=== PATIENT | female | born 1950 | race Caucasian/White ===

== ENCOUNTER 2018-03-20 13:36 | Emergency (ER) | payer SELFPAY ==
--- NOTE | 2018-03-20 15:09 | ED PDOC ---
Arrival/HPI - General Chief Complaint: High Blood Pressure Time Seen by Provider: 03/20/18 15:02 Historian: Patient - History of Present Illness Narrative History of Present Illness (Text): 03/20/18 15:06 67 year old female, with no significant past medical history, who presents to the Emergency department complaining of hypertension and a headache today. Patient states she is still experiencing the headache but it is better now. Patient denies any fevers, chills, shortness of breath, abdominal pain, nausea, vomiting, diarrhea, back pain, neck pain, dizziness, or any other complaint. Time/Duration: Prior to Arrival Symptom Onset: Gradual Symptom Course: Unchanged Activities at Onset: Light Context: Home Past Medical History - Provider Review Nursing Documentation Reviewed: Yes - Infectious Disease Hx of Infectious Diseases: None - Reproductive Menopause: Yes - Cardiac Hx Hypertension: Yes - Pulmonary Hx Respiratory Disorders: No - Neurological Hx Neurological Disorder: No - Hematological/Oncological Hx Hepatitis C: Yes - Psychiatric Hx Substance Use: No - Anesthesia Hx Anesthesia: No Family/Social History - Physician Review Nursing Documentation Reviewed: Yes Family/Social History: Unknown Family HX Smoking Status: Smoker Currrent Status Unknown Hx Alcohol Use: No Hx Substance Use: No Allergies/Home Meds Allergies/Adverse Reactions: Allergies No Known Allergies Allergy (Verified 03/20/18 14:25) Home Medications: Home Meds Medication Instructions Recorded Confirmed Captopril 50 mg PO DAILY 03/20/18 03/20/18 Review of Systems - Physician Review All systems were reviewed & negative as marked: Yes - Review of Systems Constitutional: Normal Eyes: Normal ENT: Normal Respiratory: Normal. absent: SOB, Cough Cardiovascular: Normal. absent: Chest Pain Gastrointestinal: Normal. absent: Abdominal Pain Genitourinary Female: Normal. absent: Dysuria, Frequency Musculoskeletal: Normal. absent: Back Pain, Neck Pain Skin: Normal. absent: Rash Neurological: Headache Endocrine: Normal Hemo/Lymphatic: Normal Psychiatric: Normal Physical Exam Vital Signs Reviewed: Yes Vital Signs Temp Pulse Pulse Resp BP BP Pulse Ox 03/20/18 14:50 98.7 F 65 18 180/90 H 99 03/20/18 14:40 65 180/90 H 03/20/18 14:21 98.7 F 68 18 154/97 H 99 Temperature: Afebrile Blood Pressure: Hypertensive Pulse: Regular Respiratory Rate: Normal Appearance: Positive for: Well-Appearing, Non-Toxic, Comfortable Pain Distress: None Mental Status: Positive for: Alert and Oriented X 3 Medical Decision Making ED Course and Treatment: 03/20/18 15:08 Impression: 67 year old female presents to the emergency department complaining of hypertension and a headache today. Plan: -- Reassess and disposition Progress Notes: 03/20/18 18:41 patient was seen for hypertension and headache. patient reported significant improvement in headache after blood pressure significantly improved. patient denies any acute cardiopulmonary symptoms and remained stable throughout ED course. - RAD Interpretation Narrative RAD Interpretations (Text): 03/20/18 19:08 EXAM: CT Head Without IV contrast. CLINICAL HISTORY: ARM PAIN, HEADACHE TECHNIQUE: Axial computed tomography images of the head/brain without intravenous contrast. COMPARISON: None provided. FINDINGS: BRAIN No acute intraparenchymal hemorrhage. No mass lesion. No CT evidence for acute territorial infarct. No midline shift or extra-axial collections. Incidental note is made of small bilateral basal ganglia calcifications. VENTRICLES: No hydrocephalus. ORBITS: The orbits are unremarkable. SINUSES AND MASTOIDS: The paranasal sinuses and mastoid air cells are clear. BONES: No fracture. IMPRESSION: No acute intracranial abnormality. Electronically signed on Mar 20, 2018 7:06:50 PM EDT by: Sergio Rosales M.D., Certified by [facility], Diagnostic Radiology [employer] Attendant: Radiologist - EKG Interpretation EKG Interpretation (Text): 03/20/18 15:40 1459: nsr at 66 bpm, nml qrs, nml axis, no acute sttw abn Interpreted by ED Physician: Yes - Scribe Statement The provider has reviewed the documentation as recorded by the Scribkeri Perez All medical record entries made by the Scribe were at my direction and personally dictated by me. I have reviewed the chart and agree that the record accurately reflects my personal performance of the history, physical exam, medical decision making, and the department course for this patient. I have also personally directed, reviewed, and agree with the discharge instructions and disposition. Disposition/Present on Arrival - Present on Arrival Any Indicators Present on Arrival: No History of DVT/PE: No History of Uncontrolled Diabetes: No Urinary Catheter: No History of Decub. Ulcer: No History Surgical Site Infection Following: None - Disposition Have Diagnosis and Disposition been Completed?: Yes Diagnosis: Hypertension Disposition: HOME/ ROUTINE Disposition Time: :08 Patient Plan: Discharge Patient Problems: Current Active Problems Problem Status Onset Hypertension Acute Condition: STABLE Discharge Instructions (ExitCare): High Blood Pressure in Adults Additional Instructions: you must follow up with a primary care doctor for better control of your blood pressure. MEGHAN VELASQUEZ, thank you for letting us take care of you today. Your provider was Dr. Brad Shirley and you were treated for high blood pressure. The emergency medical care you received today was directed at your acute symptoms. If you were prescribed any medication, please fill it and take as directed. It may take several days for your symptoms to resolve. Return to the Emergency Department if your symptoms worsen, do not improve, or if you have any other problems. Please contact your doctor or call one of the physicians/clinics you have been referred to that are listed on the Patient Visit Information form that is included in your discharge packet. Bring any paperwork you were given at discharge with you along with any medications you are taking to your follow up visit. Our treatment cannot replace ongoing medical care by a primary care provider outside of the emergency department. Thank you for allowing the [facility] team to be part of your care today. If you had an X-Ray or CT scan: A Radiologist will review the ED reading if any change in treatment is needed we will contact you. If you had a blood, urine, or wound culture: It will take several days for the results, if any change in treatment is needed we will contact you. If you had an STI test: It will take 48 hours for the results. Please call after 1 week if you have not heard back. Prescriptions: Captopril 50 mg PO DAILY 30 Days #30 tablet hydroCHLOROthiazide [Microzide] 50 mg PO DAILY 30 Days #30 tab Referrals: FAMILY PROVIDER,NO [Primary Care Provider] - Follow up with primary [facility] [Outside] - Follow up with primary Cary Mccabe MD [Medical Doctor] - Follow up with primary Forms: [employer] ([place]ian)
[2018-03-20 16:16] LABS: BLOOD UREA NITROGEN 16 mg/dL (7-21); CALCIUM 9.8 mg/dL (8.4-10.5); GFR NON-AFRICAN AMERICAN > 60
[2018-03-20 16:32] LABS: HEMOGLOBIN 14.5 g/dL (12.0-16.0); MEAN CELL VOLUME 84.1 fl (80.0-105.0); MEAN CORPUSCULAR HEMOGLOBIN 28.8 pg (25.0-35.0); MEAN CORPUSCULAR HGB CONC 34.3 g/dl (31.0-37.0); RBC 5.03 10^6/uL (3.5-6.1); WHITE BLOOD COUNT 7.3 10^3/ul (4.5-11.0)
[2018-03-20 16:33] LABS: BASO # 0.02 K/mm3 (0.0-2.0); BASO % 0.3 % (0.0-3.0); EOS # 0.2 (0.0-0.7); EOS % 3.3 % (1.5-5.0); GRAN # 2.56 (1.4-6.5); GRAN % 35.2 % (50.0-68.0); LYMPH # 3.9 (1.2-3.4); LYMPH % 53.6 % (22.0-35.0); MEAN PLATELET VOLUME 11.2 fl (7.0-11.0); MONO # 0.6 (0.1-0.6); MONO % 7.6 % (1.0-6.0)
[2018-03-20 19:15] VITALS: BP 129/89; PULSE 60; RESP 23; O2SAT 96
[2018-03-20 19:29] VITALS: TEMP 97.6
--- NOTE | 2018-03-21 08:38 | CT ---
Date of service: 03/20/2018 PROCEDURE: CT HEAD WITHOUT CONTRAST. HISTORY: headache, ICH COMPARISON: None available. TECHNIQUE: Axial computed tomography images were obtained through the head/brain without intravenous contrast. Radiation dose: Total exam DLP = 951.34 mGy-cm. This CT exam was performed using one or more of the following dose reduction techniques: Automated exposure control, adjustment of the mA and/or kV according to patient size, and/or use of iterative reconstruction technique. FINDINGS: HEMORRHAGE: No intracranial hemorrhage. BRAIN: No mass effect or edema. Mild chronic periventricular white matter ischemic change VENTRICLES: Unremarkable. No hydrocephalus. CALVARIUM: Unremarkable. PARANASAL SINUSES: Unremarkable as visualized. No significant inflammatory changes. MASTOID AIR CELLS: Unremarkable as visualized. No inflammatory changes. OTHER FINDINGS: None. IMPRESSION: MILD CHRONIC WHITE MATTER ISCHEMIC CHANGE. No intracranial mass, hemorrhage or evidence of acute infarct. The preliminary findings for this examination were reported by [facility] at 7:06 P.M. ON 03/20/2018. There is concurrence of this report with the preliminary findings.
--- NOTE | 2018-03-21 12:58 | CARD ---
APPROVED REPORT Date of service: 03/20/2018 EKG Measurement Heart [id number] <Conclusion> Normal sinus rhythm Normal ECG
== END 2018-03-20 19:15 | disposition home or self-care (01) ==
LOC: ED 13:36
DX: I10 Essential (primary) hypertension (principal)